=== PATIENT | male | born 1990 | race Caucasian/White ===

== ENCOUNTER 2019-03-12 15:58 | Emergency (ER) | payer MEDICAID, OTHER ==
[2019-03-12] MEDS: IBUPROFEN 600 MG TAB PO (16:50)
== END 2019-03-12 20:02 | disposition home or self-care (01) ==
LOC: FTE 15:58
DX: S62.306A Unspecified fracture of fifth metacarpal bone, right hand, initial encounter for closed fracture (principal); W22.8XXA Striking against or struck by other objects, initial encounter; Y92.9 Unspecified place or not applicable
CPT/HCPCS: 29125; 73130-RT; 99283-25